=== PATIENT | female | born 1970 | race African-American/Black ===

== ENCOUNTER → 2021-02-16 | Outpatient (CLI) | payer MEDICAID ==
[2021-02-16 09:24] LABS: Basophils # (auto) 0 10 ^3/uL (0-0.2); Basophils % (auto) 0.6 % (0.0-2.0); Eosinophils # (auto) 0 10 ^3/uL (0-0.8); Eosinophils % (auto) 0.7 % (0.0-7.0); Hematocrit 36.9 % (36.0-46.0); Hemoglobin 12.2 g/dL (12.2-16.2); Lymphocytes # (auto) 2.8 10 ^3/uL (0.4-5.4); Lymphocytes % (auto) 41.6 % (10.0-50.0); Mean Corpuscular Hemoglobin 29.8 pg (28.0-32.0); Mean Corpuscular Hgb Conc. 33.1 g/dL (32.0-36.0); Mean Corpuscular Volume 89.9 fL (80.0-100.0); Monocytes # (auto) 0.3 10 ^3/uL (0-1.3); Monocytes % (auto) 4.8 % (0.0-12.0); Neutrophils # (auto) 3.5 10 ^3/uL (1.6-8.6); Neutrophils % (auto) 52.3 % (37.0-80.0); Red Cell Distribution Width 14.7 % (11.8-14.3); White Blood Cell 6.7 10^3/uL (4.4-10.8)
[2021-02-16 09:51] LABS: Potassium 3.6 mmol/L (3.5-5.1)
[2021-02-16 10:07] LABS: Albumin 3.2 g/dL (3.4-5.0); BUN/Creatinine Ratio 13.1; Bilirubin, Total 0.5 mg/dL (0.2-1.0); Total Protein 8.1 g/dL (6.4-8.2)
== END | disposition home or self-care (01) ==
LOC: LAB 08:55
PROVIDERS: ATTEND Nurse Practitioner Family
DX: I10 Essential (primary) hypertension (principal); E03.9 Hypothyroidism, unspecified; E66.9 Obesity, unspecified; E78.5 Hyperlipidemia, unspecified
CPT/HCPCS: 36415; 80053; 80061; 83036; 84443; 85025

== ENCOUNTER → 2021-05-17 | Day surgery (SDC) | payer MEDICAID ==
[2021-05-12 10:44] LABS: Basophils # (auto) 0.1 10 ^3/uL (0-0.2); Basophils % (auto) 1.5 % (0.0-2.0); Eosinophils # (auto) 0 10 ^3/uL (0-0.8); Eosinophils % (auto) 0.5 % (0.0-7.0); Hematocrit 37.1 % (36.0-46.0); Hemoglobin 12.6 g/dL (12.2-16.2); Lymphocytes # (auto) 2.3 10 ^3/uL (0.4-5.4); Lymphocytes % (auto) 39.9 % (10.0-50.0); Mean Corpuscular Hemoglobin 30.2 pg (28.0-32.0); Mean Corpuscular Hgb Conc. 33.9 g/dL (32.0-36.0); Mean Corpuscular Volume 89.1 fL (80.0-100.0); Monocytes # (auto) 0.5 10 ^3/uL (0-1.3); Monocytes % (auto) 8.1 % (0.0-12.0); Neutrophils # (auto) 2.8 10 ^3/uL (1.6-8.6); Nucleated Red Blood Cells % 0.2 %; Red Blood Cells 4.16 10^6/uL (4.0-5.20); Red Cell Distribution Width 14.3 % (11.8-14.3); White Blood Cell 5.7 10^3/uL (4.4-10.8)
[2021-05-12 11:13] LABS: Albumin 3.4 g/dL (3.4-5.0); Calcium 9.4 mg/dL (8.5-10.1); Potassium 3.3 mmol/L (3.5-5.1)
[2021-05-12 11:18] LABS: BUN/Creatinine Ratio 9.5; Bilirubin, Total 0.4 mg/dL (0.2-1.0); Total Protein 7.5 g/dL (6.4-8.2)
[~2021-05-17] VITALS: Ht 180.3 cm; Wt 122.5 kg
[~2021-05-17] MED LIST: AMLO-496 PO; BUPR1TAB82 PO; LATA0.0020 OP; LEVO137C3 PO; MIDAZOLAM HCL 5 MG/ML-1ML VIAL ONE; TRIA37.56 GT; fentaNYL CITRATE 100 MCG/2 ML VL ONE
[2021-05-17] MEDS: MIDAZOLAM HCL 5 MG/ML-1ML VIAL ONE ×3 (13:52→13:58)
[2021-05-17] MEDS: diphenhdrAMINE HCL 50 MG/1 ML VL ONE ×2 (13:52→13:55)
[2021-05-17] MEDS: fentaNYL CITRATE 100 MCG/2 ML VL ONE ×2 (13:52→13:55)
[2021-05-17 15:15] VITALS: BP 144/82
== END | disposition home or self-care (01) ==
LOC: GI 12:50
PROVIDERS: ATTEND Internal Medicine Gastroenterology
DX: K59.00 Constipation, unspecified (principal); K51.40 Inflammatory polyps of colon without complications; K62.1 Rectal polyp; K57.30 Diverticulosis of large intestine without perforation or abscess without bleeding; I10 Essential (primary) hypertension; E03.9 Hypothyroidism, unspecified; Z98.891 History of uterine scar from previous surgery; Z90.89 Acquired absence of other organs; Z98.51 Tubal ligation status; Z98.890 Other specified postprocedural states; Z79.899 Other long term (current) drug therapy
CPT/HCPCS: 36415; 45385; 80053; 85025; J1200; J2250; J3010; J7030; U0003; 99152; 99153

== ENCOUNTER → 2022-06-18 | Outpatient (CLI) | payer MEDICAID ==
[~2022-06-18] MED LIST changes: -MIDAZOLAM HCL 5 MG/ML-1ML VIAL ONE; -fentaNYL CITRATE 100 MCG/2 ML VL ONE
[2022-06-18 09:02] LABS: Hematocrit 38.2 % (36.0-46.0); Hemoglobin 12.6 g/dL (12.2-16.2); Mean Corpuscular Hgb Conc. 32.9 g/dL (32.0-36.0); Mean Corpuscular Volume 88.3 fL (80.0-100.0); Red Blood Cells 4.33 10^6/uL (4.0-5.20); Red Cell Distribution Width 14.7 % (11.8-14.3); White Blood Cell 7.5 10^3/uL (4.4-10.8)
[2022-06-18 09:18] LABS: Basophils % (manual) 0 (0.0-2.0); Blast Cells 0; Eosinophils % (manual) 0 (0-7); Metamyelocytes % 0; Myelocytes % 0; Promyelocytes % 0; Reactive Lymphocytes 0
[2022-06-18 09:34] LABS: Albumin 3.5 g/dL (3.4-5.0); Calcium 9.8 mg/dL (8.5-10.1); Potassium 3.3 mmol/L (3.5-5.1)
[2022-06-18 09:39] LABS: BUN/Creatinine Ratio 15.2; Bilirubin, Total 0.6 mg/dL (0.2-1.0); Total Protein 8.4 g/dL (6.4-8.2)
[2022-06-18 09:46] LABS: Follicle Stimulating Hormone 6.31 IU/L (SEE BELOW); Leuteinizing Hormone 6.1 IU/L
[2022-06-18 13:15] LABS: Band Neutrophils % (manual) 4; Lymphocytes % (manual) 27 (10.0-50.0); Monocytes % (manual) 9 (0-12)
== END | disposition home or self-care (01) ==
LOC: LAB 08:48
PROVIDERS: ATTEND Nurse Practitioner Family
DX: Z00.00 Encounter for general adult medical examination without abnormal findings (principal); I10 Essential (primary) hypertension; E03.9 Hypothyroidism, unspecified
CPT/HCPCS: 36415; 80053; 80061; 82672; 83001; 83002; 84443; 85007; 85027

== ENCOUNTER → 2023-12-02 | Outpatient (CLI) | payer MEDICAID ==
[~2023-12-02] MED LIST changes: -AMLO-496 PO; +AMLO1TAB23 PO; +BUPR-239 PO; -BUPR1TAB82 PO; -TRIA37.56 GT; +TRIA37.587 GT
[2023-12-02 10:16] LABS: Basophils # (auto) 0 10 ^3/uL (0-0.2); Basophils % (auto) 0.4 % (0.0-2.0); Eosinophils # (auto) 0 10 ^3/uL (0-0.8); Eosinophils % (auto) 0.3 % (0.0-7.0); Hematocrit 37.4 % (36.0-46.0); Hemoglobin 12.5 g/dL (12.2-16.2); Lymphocytes # (auto) 2.3 10 ^3/uL (0.4-5.4); Lymphocytes % (auto) 35.4 % (10.0-50.0); Mean Corpuscular Hemoglobin 29.7 pg (28.0-32.0); Mean Corpuscular Hgb Conc. 33.5 g/dL (32.0-36.0); Mean Corpuscular Volume 88.6 fL (80.0-100.0); Monocytes # (auto) 0.3 10 ^3/uL (0-1.3); Monocytes % (auto) 4.6 % (0.0-12.0); Neutrophils # (auto) 3.8 10 ^3/uL (1.6-8.6); Neutrophils % (auto) 59.3 % (37.0-80.0); Nucleated Red Blood Cells % 0.1 %; Red Blood Cells 4.23 10^6/uL (4.0-5.20); Red Cell Distribution Width 14.5 % (11.8-14.3); White Blood Cell 6.4 10^3/uL (4.4-10.8)
[2023-12-02 10:34] LABS: Alanine Aminotransferase 12 U/L (7-40); Albumin 4.4 g/dL (3.2-4.8); Alkaline Phosphatase 87 U/L (46-116); Anion Gap 7 (5-15); Aspartate Aminotransferase 10 U/L (13-40); BUN/Creatinine Ratio 10.9 (10.0-20.0); Blood Urea Nitrogen 10 mg/dL (9-23); Calcium 10.1 mg/dL (8.5-10.1); Carbon Dioxide 27 mmol/L (20-30); Chloride 105 mmol/L (98-107); Cholesterol 220 mg/dL (< 200); Glucose 92 mg/dL (74-106); LDL Cholesterol 145 mg/dL (< 100); Potassium 3.6 mmol/L (3.5-5.1); Sodium 139 mmol/L (136-145); Triglycerides 110 mg/dL (< 150)
[2023-12-02 10:35] LABS: Bilirubin, Total 0.6 mg/dL (0.2-1.0); HDL Cholesterol 54 mg/dL (40-59); Total Protein 7.7 g/dL (5.7-8.2)
== END | disposition home or self-care (01) ==
LOC: LAB 09:51
DX: I10 Essential (primary) hypertension (principal); E03.9 Hypothyroidism, unspecified; E66.9 Obesity, unspecified
CPT/HCPCS: 36415; 80053; 80061; 82306; 84439; 84443; 85025